=== PATIENT | male | born 1955 | race Hispanic/Latino ===

== ENCOUNTER 2018-06-22 14:10 | Emergency (ER) | payer MEDICARE ==
[~2018-06-22] VITALS: Ht 160 cm; Wt 87.1 kg
[~2018-06-22 14:10] MED LIST: CLOPIDOGREL75 MG PO; GABAPENTIN600 MG PO; GLYBURIDE-METF1 EAC1 PO; ISOSORBIDE DINI30 MG PO; LEVAQUIN500 MG PO; NEURONTIN300 MG PO; TAZORAC30 G2; ZOCOR40 MG PO; [UNRECOGNIZED DRUG - OTHER] TOP
--- OUTSIDE RECORDS SUMMARY | 2018-06-22 14:13 | XMS REPORT | Summary of Care ---
Author Author VASILE Butler.Avani, MARCIAL Organization Unknown Address Unknown Phone Unavailable Care Team Providers Care Swift Tender Name Role Phone HIGINIO Anglin, ALISE Unavailable Unavailable VASILE D.O., MARCIAL Unavailable Unavailable YEH D.O., TIFFANIE-JOSE Unavailable Unavailable ROHAN MCKEON OR, DK Unavailable Unavailable CODI Anglin, MAYLIN Unavailable Unavailable SHIREEN MCKEON OR, SHO S Unavailable Unavailable WADE MCFARLAND OR, AFTAB Unavailable Unavailable ROHAN Anglin, DK Unavailable Unavailable HIGINIO MCKEON OR, ALISE Unavailable Unavailable Unavailable Unavailable Functional Status Name Dates Details Functional status health issues are not documented Status: Name Dates Details Cognitive status health issues are not documented Status: Problems Name Dates Details Nocturia (788.43, R35.1) Status: Active Acute otitis media (382.9, H66.90) Status: Active Wound infection (958.3, T14.8XXA) Status: Active 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 (402.00, I11.9) Status: Active Abrasion of arm, left (913.0, S40.812A) Status: Active Insomnia (780.52, G47.00) Status: Active Neck ache (723.1, M54.2) Status: Active Myocardial infarction (410.90, I21.9) Status: Active Skin lesion of scalp (709.9, L98.9) Status: Active Pain of left hand (729.5, M79.642) Status: Active Tinea cruris (110.3, B35.6) Status: Active Ventral hernia (553.20, K43.9) Status: Active Edema of hand (782.3, R60.0) Status: Active Eczema (692.9, L30.9) Status: Active Microalbuminuric diabetic nephropathy (250.40, E11.21) Status: Active 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, I25.10) Status: Active Financial difficulties (V60.2, Z59.8) Status: Active Constipation (564.00, K59.00) Status: Active Bilateral carpal tunnel syndrome (354.0, G56.03) Status: Active Medication refill (V68.1, Z76.0) Status: Active Uncontrolled type 2 diabetes mellitus with hyperglycemia, without long-term current use of insulin (250.02, E11.65) Status: Active Diabetic neuropathy (250.60, E11.40) Status: Active Fatigue (780.79, R53.83) Status: Active Atherosclerosis with claudication of extremity (440.21, I70.219) Status: Active Medical non-compliance (V15.81, Z91.19) Status: Active Primary osteoarthritis of first carpometacarpal joint of left hand (715.14, M18.12) Status: Active Diabetes mellitus (250.00, E11.9) Status: Active Hypertension (401.9, I10) Status: Active Hyperlipidemia (272.4, E78.5) Status: Active Medications Name Dates Details Clopidogrel Bisulfate 75 MG Oral Tablet TAKE 1 TABLET DAILY. Quantity: 90 YEH D.O., AFTAB Active Enalapril Maleate 5 MG Oral Tablet TAKE 1 TABLET DAILY DIRECTED. * Quantity: 90 Refills: 1 YEH D.O., AFTAB Active MetFORMIN HCl - 500 MG Oral Tablet TAKE 2 TABLETS BY MOUTH TWICE DAILY (PATIENT NEEDS APPOINTMENT FOR FUTURE R EFILLS) * Quantity: 360 Refills: 1 ALISE SYLVESTER M.D. * Start : 11-Apr-2018 Active Atorvastatin Calcium 40 MG Oral Tablet TAKE 1 TABLET DAILY DIRECTED * Quantity: 1 Refills: 1 YEH D.O., AFTAB Active 90 Tablet Bottle Neurontin 800 MG Oral Tablet TAKE 1 TABLET 3 TIMES DAILY. * Quantity: 90 Refills: 0 MARCIAL BURNETTE D.O. * Start : 16-Jun-2018 Active Aspirin 81 MG TABS TAKE 1 TABLET DAILY. * Refills: 0 Active OneTouch Verio In Vitro Strip Check sugars 3 times daily at various times. * Quantity: 300 Refills: 4 ALISE SYLVESTER M.D. * Start : 08-Jul-2016 Active OneTouch Delica Lancets 33G Check CBG 3x a day * Quantity: 300 Refills: 4 ALISE SYLVESTER M.D. * Start : 08-Jul-2016 Active Nystatin 014190 UNIT/GM External Cream APPLY AND RUB IN A THIN FILM TO AFFECTED AREAS TWICE DAILY.(AM AND PM). * Quantity: 1 Refills: 0 YEH D.O., AFTAB * Start : 29-Dec-2016 Active 30 GM Tube Nabumetone 500 MG Oral Tablet TAKE 1 TABLET EVERY 12 HOURS NEEDED. * Quantity: 60 Refills: 2 YEH D.O., AFTAB * Start : 03-Jan-2017 Active Triamcinolone Acetonide 0.1 % External Ointment APPLY AND GENTLY MASSAGE INTO AFFECTED AREA(S) TWICE DAILY. * Quantity: 60 Refills: 1 YEH D.O., AFTAB * Start : 11-Jan-2017 Active Esomeprazole Magnesium 40 MG Oral Capsule Delayed Release TAKE 1 CAPSULE BY MOUTH ONCE DAILY * Quantity: 90 Refills: 1 YEH D.O., AFTAB * Start : 11-Jan-2017 Active Naproxen 500 MG Oral Tablet * Refills: 0 ALISE SYLVESTER M.D. * Start : 12-Apr-2017 Active Tresiba FlexTouch 100 UNIT/ML Subcutaneous Solution Pen-injector Inject 25 units daily; may self titrate up to 45 units a day * Quantity: 1 Refills: 3 ALISE SYLVESTER M.D. * Start : 12-Apr-2017 Active 5 x 3 ML Pen Pen [place] 32G X 4 MM 4x a day * Quantity: 100 Refills: 4 ALISE SYLVESTER M.D. * Start : 12-Apr-2017 Active Meloxicam 7.5 MG Oral Tablet TAKE 1 TABLET BY MOUTH TWICE DAILY NEEDED * Quantity: 60 Refills: 0 YEH D.O., AFTAB * Start : 01-Feb-2018 Active Trulicity 1.5 MG/0.5ML Subcutaneous Solution Pen-injector INJECT 1 PEN SUBCUTANEOUSLY ONCE A WEEK * Quantity: 1 Refills: 3 ALISE SYLVESTER M.D. * Start : 03-Jul-2017 Active 4 x 0.5 ML Pen TraMADol HCl - 50 MG Oral Tablet TAKE 1 TABLET BY MOUTH EVERY 12 HOURS NEEDED FOR PAIN * Quantity: 40 Refills: 0 LOWE-BEDOLLA D.O., MARCIAL * Start : 21-Aug-2017 Active Luliconazole 1 % External Cream APPLY AND RUB IN THIN FILM TO AFFECTED AREAS TWICE DAILY * Quantity: 1 Refills: 0 YEH D.O., TIFFANIE-JOSE * Start : 29-Mar-2018 Active 60 GM Tube Betamethasone Dipropionate Aug 0.05 % External Cream APPLY AND RUB IN A THIN FILM TO AFFECTED AREAS TWICE DAILY.(AM AND PM). * Quantity: 1 Refills: 0 YEH D.O., TIFFANIE-JOSE * Start : 29-Mar-2018 Active 50 GM Tube Allergies and Adverse Reactions Name Dates Details Acarbose TABS (Allergy) Status: Active Past Medical History Name Dates Details History of diabetes mellitus (V12.29, Z86.39) Status: Resolved History of hyperlipidemia (V12.29, Z86.39) Status: Resolved History of hypertension (V12.59, Z86.79) Status: Resolved History of nephrolithiasis (V13.01, Z87.442) Status: Resolved Procedures Procedure Dates Details [[facility]] HEMOGLOBIN A1c Date: 15-Jun-2018 [[facility]] LIPID PANEL Date: 15-Jun-2018 History of Percutaneous transluminal coronary angioplasty Completed History of Neck surgery Completed Immunization Name Dates Details Immunizations not documented Family History Name Dates Details Family history of diabetes mellitus (V18.0, Z83.3) Status: Active Name Dates Details Family history of diabetes mellitus (V18.0, Z83.3) Status: Active Name Dates Details Family history of kidney stones (V18.69, Z84.1) Status: Active Social History Name Dates Details - Status: Name Dates Details Unknown if ever smoked Vital Signs Date Test Result Details [id number] BP Systolic 130 mm[Hg] Status: BP Diastolic 70 mm[Hg] Status: Heart Rate 95 /min Status: [id number]:13 BP Systolic 164 mm[Hg] Status: Comments: Location: LUE; Position: Sitting BP Diastolic 92 mm[Hg] Status: Comments: Location: LUE; Position: Sitting Heart Rate 115 /min Status: Height 63 in Status: Weight 192.375 lb Status: Body Mass Index Calculated 34.08 kg/m2 Status: Body Surface Area Calculated 1.9 m2 Status: Results Date Description Value Details [id number]:13 Glucose (Point of Care In Office) Glucose POC Lifescan 257 :08 [[facility]] LIPID PANEL CHOLESTEROL, TOTAL 147 mg/dl (Normal) Range: <200 HDL CHOLESTEROL 36 mg/dl (Below low threshold) Range: >40 TRIGLYCERIDES 222 mg/dl (Above high threshold) Range: <150 LDL-CHOLESTEROL 80 {MG/DL__CAL} (Normal) Comments: Reference range: <100 Desirable range <100 mg/dL for primary prevention; <70 mg/dL for patients with CHD or diabetic patients with > or=2 CHD risk factors. LDL-C is now calculated using geovanni Larson calculation, which is a validated novel method providing better accuracy than the Friedewald equation in the estimation of LDL-C. Anjel TOWNSEND et al. BISHOP. 2013;310(19): 4771-9593 (http:/ /education.TrustID.Qazzow/faq/DVU912) CHOL/HDLC RATIO 4.1 {CALC} (Normal) Range: <5.0 NON HDL CHOLESTEROL 111 {MG/DL__CAL} (Normal) Range: <130 Comments: For patients with diabetes plus 1 major ASCVD risk factor, treating to a non-HDL-C goal of <100 mg/dL (LDL-C of <70 mg/dL) is considered a therapeutic option. :08 [[facility]] BASIC METABOLIC PANEL W/EGFR GLUCOSE 162 mg/dl (Above high threshold) Range: 65-99 Comments: Fasting reference interval For someone without known diabetes, a glucosevalue >125 mg/dL indicates that they may havediabetes and this should be confirmed with afollow-up test. UREA NITROGEN (BUN) 14 mg/dl (Normal) Range: 7-25 CREATININE 0.74 mg/dl (Normal) Range: 0.70-1.25 Comments: For patients >49 years of age, the reference limitfor Creatinine is approximately 13% higher for peopleidentified as -[place]. eGFR NON- 97 {ML/MIN/1.7} (Normal) Range: > OR=60 eGFR 112 {ML/MIN/1.7} (Normal) Range: > OR=60 BUN/CREATININE RATIO NOT APPLICABLE {CALC} Range: 6-22 SODIUM 136 mmol/L (Normal) Range: 135-146 POTASSIUM 3.9 mmol/L (Normal) Range: 3.5-5.3 CHLORIDE 96 mmol/L (Below low threshold) Range: 98-110 CARBON DIOXIDE 30 mmol/L (Normal) Range: 20-32 CALCIUM 9.1 mg/dl (Normal) Range: 8.6-10.3 :08 [[facility]] MICROALBUMIN, RANDOM URINE (W/CREATININE) Comments: Results verified by repeat analysis on dilution. Reference RangeNot established CREATININE, RANDOM URINE 157 mg/dl (Normal) Range: 20-320 MICROALBUMIN 35.4 mg/dl (Normal) Comments: Results verified by repeat analysis on dilution. Reference RangeNot established MICROALBUMIN/CREATININE RATIO, RANDOM URINE 225 {MCG/MG_CRE} (Above high threshold) Range: <30 Comments: The ADA defines abnormalities in albuminexcretion as follows: Category Result (mcg/mg creatinine) Normal <30Microalbuminuria 30-299 Clinical albuminuria > JP=003 The ADA recommends that at least two of threespecimens collected within a 3-6 month period beabnormal before considering a patient to bewithin a diagnostic category. :08 [[facility]] T4, FREE T4, FREE 1.2 ng/dl (Normal) Range: 0.8-1.8 :08 [[facility]] TSH, 3RD GENERATION TSH 3.83 {MIU/L} (Normal) Range: 0.40-4.50 :08 [[facility]] HEMOGLOBIN A1c Comments: REPORT COMMENT:FASTING:YES HEMOGLOBIN A1c 8.8 {%_of_total} (Above high threshold) Range: <5.7 Comments: For someone without known diabetes, a hemoglobin S2xfeipw of 6.5% or greater indicates that they may have diabetes and this should be confirmed with a follow-up test. For someone with known diabetes, a value <7% indicates that their diabetes is well controlled and a value greater than or equal to 7% indicates suboptimal control. A1c targets should be individualized based on duration of diabetes, age, comorbid conditions, and other considerations. Currently, no consensus exists regarding use ofhemoglobin A1c for diagnosis of diabetes for children. Plan of Care Name Dates Details Planned Observations Planned Goals not documented Planned Encounters Appointment; ALISE SYLVESTER M.D. On: 05-Oct-2018 16:15 Interventions Provided Medication Changes* Neurontin 800 MG Oral Tablet - Renew Instructions Name Dates Details Instructions not documented Encounters Appointment; AFTAB OLVERA D.O. Encounter Diagnosis: Problem not documented On: 05-Jul-2016 13:45 Appointment; SNEHA ABEL M.D. Encounter Diagnosis: Problem not documented On: 06-Jul-2016 11:00 Appointment; SHO IYER M.D. Encounter Diagnosis: Problem not documented On: 08-Jul-2016 9:30 Appointment; SANJUANA [address] Encounter Diagnosis: Problem not documented On: 08-Jul-2016 11:00 Appointment; AFTAB OLVERA D.O. Encounter Diagnosis: Problem not documented On: 21-Jul-2016 10:45 Appointment; AFTAB OLVERA D.O. Encounter Diagnosis: Problem not documented On: 26-Jul-2016 16:30 Appointment; AFTAB OLVERA D.O. Encounter Diagnosis: Problem not documented On: 29-Aug-2016 13:00 Appointment; AFTAB OLVEAR D.O. Encounter Diagnosis: Problem not documented On: 27-Sep-2016 11:00 Appointment; AFTAB OLVERA D.O. Encounter Diagnosis: Problem not documented On: 28-Nov-2016 10:00 Appointment; AFTAB OLVERA D.O. Encounter Diagnosis: Problem not documented On: 29-Dec-2016 11:30 Appointment; AFTAB OLVERA D.O. Encounter Diagnosis: Problem not documented On: 11-Jan-2017 13:15 Appointment; NATHAN GONZÁLES D.O. Encounter Diagnosis: Problem not documented On: 25-Jan-2017 14:00 Appointment; AFTAB OLVERA D.O. Encounter Diagnosis: Problem not documented On: 20-Feb-2017 8:30 Appointment; AFTAB OLVERA D.O. Encounter Diagnosis: Problem not documented On: 04-Apr-2017 14:00 Appointment; ALISE SYLVESTER M.D. Encounter Diagnosis: Problem not documented On: 12-Apr-2017 11:00 Appointment; SANJUANA [address] Encounter Diagnosis: Problem not documented On: 21-Apr-2017 15:00 Appointment; SANJUANA H[address] Encounter Diagnosis: Problem not documented On: 12-May-2017 13:00 Appointment; ALISE SYLVESTER M.D. Encounter Diagnosis: Problem not documented On: 03-Jul-2017 12:00 Appointment; SANJUANA [address] Encounter Diagnosis: Problem not documented On: 11-Jul-2017 15:00 Appointment; ATFAB OLVERA D.O. Encounter Diagnosis: Problem not documented On: 21-Aug-2017 9:15 Appointment; ERA TERRY M.D. Encounter Diagnosis: Problem not documented On: 05-Sep-2017 10:00 Appointment; ALISE SYLVESTER M.D. Encounter Diagnosis: Problem not documented On: 20-Sep-2017 15:45 Appointment; AFTAB OLVERA D.O. Encounter Diagnosis: Problem not documented On: 03-Oct-2017 11:00 Appointment; ERA TERRY M.D. Encounter Diagnosis: Problem not documented On: 17-Oct-2017 9:45 Appointment; ALISE SYLVESTER M.D. Encounter Diagnosis: Problem not documented On: 14-Nov-2017 16:15 Appointment; ALISE SYLVESTER M.D. Encounter Diagnosis: Problem not documented On: 15-Dec-2017 15:15 Appointment; ALISE SYLVESTER M.D. Encounter Diagnosis: Problem not documented On: 14-Mar-2018 8:00 Appointment; AFTAB OLVERA D.O. Encounter Diagnosis: Problem not documented On: 26-Mar-2018 13:30 Appointment; ALISE SYLVESTER M.D. Encounter Diagnosis: Problem not documented On: 15-Jun-2018 15:15
[2018-06-22] MEDS ORDERED: IPRATROPIUM BROMIDE 0.02% 2.5 ML NEB NEB STA (14:37)
[2018-06-22] MEDS ORDERED: ALBUTEROL SULF 0.083% NEB SOLN 3 ML NEB NEB STA (14:37)
[2018-06-22] MEDS ORDERED: ACETAMINOPHEN/CODEINE ELIX 120-12 MG/5 ML UDC NG ONE (14:45)
[2018-06-22] MEDS ORDERED: DEXAMETHASONE SOD PHOS 10 MG/1 ML VIAL INJ ONE (15:15)
--- NOTE | 2018-06-22 16:09 | Diagnostic Imaging Report ---
EXAMINATION: PA and lateral views of the chest. COMPARISON: None CLINICAL HISTORY: Cough, phlegm for 3 days DISCUSSION: Lines/tubes: None. Lungs: The lungs are well inflated and clear. There is no evidence of pneumonia or pulmonary edema. Pleura: There is no pleural effusion or pneumothorax. Heart and mediastinum: Cardiomediastinal silhouette is unremarkable. Pulmonary vasculature is normal. Bones and soft tissues: No acute bony abnormalities. Degenerative changes in the thoracic spine IMPRESSION: No acute cardiopulmonary abnormalities. Signed by: Dr. Anderson Rios M.D. on 06/22/2018 4:05 PM
[2018-06-22 17:54] VITALS: BP 138/83
== END 2018-06-22 18:11 | disposition home or self-care (01) ==
LOC: ER 14:10
DX: R05 Cough (principal); J20.9 Acute bronchitis, unspecified; I10 Essential (primary) hypertension; E11.40 Type 2 diabetes mellitus with diabetic neuropathy, unspecified; I25.10 Atherosclerotic heart disease of native coronary artery without angina pectoris
CPT/HCPCS: 36415; 71046; 82948; 87400; 99284